=== PATIENT | male | born 1950 | race Caucasian/White ===

== ENCOUNTER 2016-12-23 10:31 | Emergency (ER) | payer MEDICARE ==
[2016-12-23 10:56] VITALS: BP 128/79; TEMP 96.1; O2SAT 96
--- NOTE | 2016-12-23 11:03 | ED.PDOC ---
History of Present Illness - General Chief Complaint: Respiratory Problem Stated Complaint: cough and fever Time Seen by Provider: 12/23/16 10:37 Source: patient, RN notes reviewed, Vital Signs reviewed, family Exam Limitations: no limitations - History of Present Illness Comments: Patient with 3 days of subjective fever, cough, chills, BRANHAM, body aches and vomiting X3. Timing/Duration: constant, other - 3 days Cough Quality/Degree: moderate, productive cough Possible Cause: no prior episodes, illness exposure Improving Factors: nothing Worsening Factors: nothing Associated Symptoms: cough, fever/chills, headache, muscle aches Allergies/Adverse Reactions: Allergies NO KNOWN ALLERGY Allergy (Verified 12/23/16 10:58) Home Medications: Ambulatory Orders Amlodipine Besylate 10 mg PO DAILY 12/23/16 Ascorbic Acid [Vitamin C] 250 mg PO DAILY 12/23/16 Atorvastatin Calcium [Lipitor] 10 mg PO DAILY 12/23/16 Clopidogrel Bisulfate 75 mg PO DAILY 12/23/16 Cyclobenzaprine HCl 10 mg PO TID PRN 12/23/16 Ferrous Sulfate 324 mg PO DAILY 12/23/16 Gabapentin 400 mg PO TID 12/23/16 Hydroxyzine HCl 25 mg PO QID 12/23/16 Oseltamivir Phosphate [Tamiflu] 75 mg PO BID #10 cap 12/23/16 Oxycodone HCl 5 - 10 mg PO TID 12/23/16 Potassium Chloride [Klor-Con/25] 25 - 50 meq PO BID 12/23/16 Ranitidine HCl 150 mg PO DAILY 12/23/16 Tamsulosin [Flomax] 0.4 mg PO DAILY 12/23/16 Review of Systems - Review of Systems Constitutional: States: chills, diaphoresis, fever, malaise, weakness EENTM: States: no symptoms reported, nose congestion. Denies: ear pain, throat pain Respiratory: States: cough. Denies: short of breath, stridor, wheezing Cardiology: States: no symptoms reported. Denies: chest pain, palpitations, syncope Gastrointestinal/Abdominal: States: nausea, vomiting. Denies: abdominal pain, constipation, diarrhea Genitourinary: States: no symptoms reported Musculoskeletal: States: muscle pain Skin: States: no symptoms reported Neurological: States: headache Endocrine: States: no symptoms reported Past Medical History (General) - Patient Medical History Hx Hypertension: Yes Hx Gastroesophageal Reflux: Yes - Vaccination History Hx Tetanus, Diphtheria Vaccination: Yes Hx Influenza Vaccination: No Hx Pneumococcal Vaccination: Yes - Social History Hx Tobacco Use: Yes Cigarettes Packs Per Day: 1 Hx Alcohol Use: No Hx Substance Use: No Hx Substance Use Treatment: No Hx Depression: No - Activities of Daily Living Hospice Agency (if applicable):: None - Female History Patient is a Female of Child Bearing Age (10 -59 yrs old): No Patient : No Family Medical History - Family History Mother Family History: Unknown Physical Exam - Physical Exam General Appearance: Alert, Comfortable, No apparent distress, Ill Appearing, Well Developed, Well Hydrated, Well Nourished Neck: non-tender, full range of motion, supple, lymphadenopathy (R), lymphadenopathy (L) Respiratory: chest non-tender, lungs clear, normal breath sounds, no respiratory distress, no accessory muscle use Cardiovascular/Chest: normal peripheral pulses, regular rate, rhythm, no edema, no gallop, no JVD, no murmur Gastrointestinal/Abdominal: normal bowel sounds, non tender, soft, no organomegaly, no pulsatile mass Extremity: normal range of motion, non-tender, normal inspection, no pedal edema Neurologic: no motor/sensory deficits, alert, normal mood/affect, oriented x 3 Skin Exam: normal color, warm/dry Progress - Results/Orders Results/Orders: Influenza A + Departure - Departure Clinical Impression: Influenza Time of Disposition: 11:35 Disposition: Discharge to Home or Self Care Condition: Good Departure Forms: ED Discharge - Pt. Copy, Patient Portal Self Enrollment Instructions: Influenza Diet: resume usual diet Activity: increase activity as tolerated Prescriptions: Oseltamivir Phosphate [Tamiflu] 75 mg PO BID #10 cap Home Medications: Ambulatory Orders Amlodipine Besylate 10 mg PO DAILY 12/23/16 Ascorbic Acid [Vitamin C] 250 mg PO DAILY 12/23/16 Atorvastatin Calcium [Lipitor] 10 mg PO DAILY 12/23/16 Clopidogrel Bisulfate 75 mg PO DAILY 12/23/16 Cyclobenzaprine HCl 10 mg PO TID PRN 12/23/16 Ferrous Sulfate 324 mg PO DAILY 12/23/16 Gabapentin 400 mg PO TID 12/23/16 Hydroxyzine HCl 25 mg PO QID 12/23/16 Oseltamivir Phosphate [Tamiflu] 75 mg PO BID #10 cap 12/23/16 Oxycodone HCl 5 - 10 mg PO TID 12/23/16 Potassium Chloride [Klor-Con/25] 25 - 50 meq PO BID 12/23/16 Ranitidine HCl 150 mg PO DAILY 12/23/16 Tamsulosin [Flomax] 0.4 mg PO DAILY 12/23/16
[2016-12-23] MEDS ORDERED: OSELTAMIVIR 75 MG CAP PO ONE (11:35)
== END 2016-12-23 12:20 | disposition home or self-care (01) ==
LOC: ER 10:31
DX: J11.1 Influenza due to unidentified influenza virus with other respiratory manifestations (principal); I10 Essential (primary) hypertension; K21.9 Gastro-esophageal reflux disease without esophagitis; F17.210 Nicotine dependence, cigarettes, uncomplicated; Z79.899 Other long term (current) drug therapy

== ENCOUNTER 2017-05-06 10:01 | Emergency (ER) | payer MEDICARE, OTHER ==
[2017-05-06] MEDS ORDERED: KETOROLAC TROMETHAMINE INJ 30 MG/ML VIAL IM ONE (10:13)
[2017-05-06] MEDS ORDERED: HYDROcodone 7.5MG/APAP 325MG 1 EA TAB PO ONE (10:13)
[2017-05-06] MEDS ORDERED: predniSONE 20 MG TAB PO ONE (10:13)
--- NOTE | 2017-05-06 12:01 | RAD ---
EXAM DESCRIPTION: Chest,2 Views CLINICAL HISTORY: 66 years, Male, chest pain after blunt trauma 3d ago COMPARISON: None. FINDINGS: Hyperinflation. There is a 1 cm nodular density of the posterior lateral right 9th rib, chronic in appearance. This is probably nipple shadow. If further characterization is desired a follow-up films can be obtained with nipple markers. Small opacity at the left base probably chronic change. On the lateral film, there is an oblong densities slightly more than 1 cm anterior to the aorta slightly below the arch. This is not clearly seen on the frontal projection. Consider follow-up films in 4-6 weeks to evaluate for stability. Cardiac silhouette normal. IMPRESSION: Chronic appearing lung changes. Nodule density overlying right lower chest is probably nipple shadow. On lateral view, oblong density slightly anterior ascending aorta is present. Consider follow-up films to evaluate for stability. Lungs otherwise clear. Cardiac silhouette normal The lateral view Electronically signed by: Rome Palomino MD 05/06/2017 11:59 AM CDT
[2017-05-06] MEDS ORDERED: cloNIDine HCL 0.1 MG TAB PO ONE (12:26)
[2017-05-06 13:00] VITALS: O2SAT 98
--- NOTE | 2017-05-06 13:01 | CT ---
EXAM DESCRIPTION: Chest w/Contrast CLINICAL HISTORY: 66 years, Male, chest pain s/p trauma with abn chest xray COMPARISON: Chest x-ray May 06, 2017 TECHNIQUE: Thin-section axial CT images are obtained during rapid bolus administration of nonionic IV contrast media. Reconstructed MPR images are created and reviewed as well. This exam was performed according to our departmental dose-optimization program, which includes automated exposure control, adjustment of the mA and/or kV according to patient size and/or use of iterative reconstruction technique. FINDINGS: Both lungs are well expanded without significant emphysematous change with minimal dependent atelectasis or scarring in each posterior costophrenic angle. No pneumothorax or hemopneumothorax is seen. A distinct pulmonary nodule or mass is not apparent. Specifically no abnormality in the lower right chest anteriorly is noted and the small nodular density likely represented a nipple shadow on the chest x-ray. A specific abnormality or mass in the opposite left chest is not apparent. Within the anterior mediastinum abutting the descending aorta is a macrolobulated soft tissue density mass measuring 2.6 x 1.6 x 2.9 cm. Differential diagnosis of an anterior mediastinal mass includes thymoma, lymphoma, and teratoma. This represents the nodular density identified anteriorly on the lateral view of the chest. Other etiologies such as a hematoma are considered unlikely and no specific abnormality of the descending aorta to suggest a primary aortic abnormality is evident. Most helpful would be old examinations either CT of the chest or chest x-rays to confirm long-term stability which would allow continued monitoring of this nodular density. No additional adenopathy within the remainder of the mediastinum or hilum or axillary regions or upper aspect of the abdomen is identified. Within the endobronchial structures a small amount of mucus or debris along the posterior lateral right side is present in a pattern that does not suggest a distinct mass or nodule. Bronchitis or an acute respiratory illness with secretions within the trachea are suspected. No atelectasis or consolidation or other endobronchial abnormalities are noted. Thoracic spine and chest wall are unremarkable. No acute parenchymal inflammation is noted. The upper aspect of the abdomen is unremarkable with a diminutive appearing spleen and visualized normal appearance of the upper portion of the liver and kidneys and pancreas IMPRESSION: 1. 2.9 x 2.6 x 1.6 cm lobulated soft tissue density anterior mediastinal mass abutting the anterior surface of the aorta. Thymoma, teratoma, or the possibility of enlarged lymph nodes or lymphoma would be considered the most likely etiologies. A substernal thyroid because of its more inferior location is thought less likely with a normal appearance of the thyroid at the base of the neck noted. Most helpful would be old chest x-rays to confirm the nodular density seen radiographically is stable or prior chest CTs at other institutions to confirm stability. Alternatively a PET/CT examination to assess for hypermetabolic activity in the possibility of lymphoma or thymoma should be considered. At the very least an early follow-up with repeat imaging in 2-3 months is recommended if prior imaging to confirm stability cannot be obtained 2. Essentially clear lung jarvis with no evidence of pulmonary nodule noted on the right. The radiographic density almost certainly security representative the right nipple shadow. Mild basilar scarring or dependent atelectasis in the posterior lung bases noted bilaterally 3. Small amount of secretions or debris in the right posterior aspect of the distal trachea just above the jonathan. Correlation with any history of bronchitis or upper respiratory illness or productive cough is recommended. The appearance does not suggest an endobronchial or endotracheal mass. If follow-up imaging is performed in several months this can be reassessed as well. Electronically signed by: Brandan Frazier MD 05/06/2017 1:00 PM CDT
--- NOTE | 2017-05-06 13:09 | ED.PDOC ---
History of Present Illness - General Chief Complaint: Chest Pain/SC Stated Complaint: Chest pain, SOB Time Seen by Provider: 05/06/17 10:12 Source: patient Exam Limitations: no limitations - History of Present Illness Initial Comments: the patient is a 66-year-old male presenting to the emergency room secondary to anterior chest pain present for the last 3 days and progressive since he was wrestling with a relative and took an elbow to the sternum. The patient does have some mild shortness of breath. He has severe pain with movement. He does have some obvious COPD. He has some pain with taking deep breaths. There is no crepitus. I see no external deformity. He is significantly tender to palpation over his anterior chest wall. The patient is then. No definite fevers at home. He appears to be oxygenating well. He is moderately hypertensive here today. No other injuries. Severity: moderate Improving Factors: immobilization Worsening Factors: movement Associated Symptoms: chest pain, shortness of breath Allergies/Adverse Reactions: Allergies Penicillins Allergy (Verified 05/06/17 10:13) Rash Home Medications: Ambulatory Orders Amlodipine Besylate 10 mg PO DAILY 12/23/16 Ascorbic Acid [Vitamin C] 250 mg PO DAILY 12/23/16 Atorvastatin Calcium [Lipitor] 10 mg PO DAILY 12/23/16 Clopidogrel Bisulfate 75 mg PO DAILY 12/23/16 Cyclobenzaprine HCl 10 mg PO TID PRN 12/23/16 Ferrous Sulfate 324 mg PO DAILY 12/23/16 Gabapentin 400 mg PO BID 12/23/16 Hydroxyzine HCl 25 mg PO QID 12/23/16 Oxycodone HCl 5 - 10 mg PO TID 12/23/16 Potassium Chloride [Klor-Con/25] 25 - 50 meq PO BID 12/23/16 Ranitidine HCl 150 mg PO DAILY 12/23/16 Tamsulosin [Flomax] 0.4 mg PO DAILY 12/23/16 Aidklopoownjr-Ahqa-Eypgxywcgy [Fioricet] 1 ea PO Q8H PRN #21 tab 05/06/17 levoFLOXacin [Levaquin] 500 mg PO DAILY #7 tab 05/06/17 predniSONE [Prednisone] 20 mg PO DAILY #3 tab 05/06/17 Review of Systems - Review of Systems Constitutional: States: malaise EENTM: States: no symptoms reported Respiratory: States: short of breath - mild Cardiology: States: chest pain Gastrointestinal/Abdominal: States: no symptoms reported Genitourinary: States: no symptoms reported Musculoskeletal: States: no symptoms reported Skin: States: no symptoms reported Neurological: States: no symptoms reported Endocrine: States: no symptoms reported All other Systems: No Change from Baseline Past Medical History (General) - Patient Medical History Hx Stroke: No Hx Cardiac Disorders: Yes - PVD Hx Hypertension: Yes Hx Diabetes: No Hx Gastroesophageal Reflux: Yes Hx MRSA: No - Vaccination History Hx Tetanus, Diphtheria Vaccination: Yes Hx Influenza Vaccination: Yes - 2016 Hx Pneumococcal Vaccination: Yes - 2016 - Social History Hx Tobacco Use: Yes Hx Alcohol Use: No Hx Substance Use: No Hx Substance Use Treatment: No Hx Depression: No - Female History Patient : No Family Medical History - Family History Mother Family History: Unknown Father Hx Family;Other: Emphysema Physical Exam - Physical Exam General Appearance: Alert, No apparent distress - ith the exception of obvious pain when he moves Eye Exam: bilateral normal Ears, Nose, Throat: hearing grossly normal, normal ENT inspection, normal pharynx Neck: non-tender, full range of motion, supple Respiratory: lungs clear, normal breath sounds, no respiratory distress, no accessory muscle use, respiratory distress, other - anterior chest wall is very tender to palpation Cardiovascular/Chest: normal peripheral pulses, regular rate, rhythm, no edema Peripheral Pulses: radial,right: 2+, radial,left: 2+, dorsalis pedis,right: 2+, dorsalis pedis,left: 2+ Gastrointestinal/Abdominal: non tender, soft Rectal Exam: deferred Back Exam: normal inspection, no CVA tenderness, no vertebral tenderness Extremity: normal range of motion, non-tender, normal inspection, no pedal edema , normal capillary refill Neurologic: ream cutter II-XII nml as tested, alert, normal mood/affect, oriented x 3 Skin Exam: normal color Comments: Vital Signs - 24 hr 05/06/17 05/06/17 05/06/17 10:04 11:00 12:40 Temperature 97.7 F Pulse Rate [ 74 68 64 Apical] Respiratory 24 24 20 Rate Blood Pressure 151/82 156/87 185/97 [Right Arm] O2 Sat by Pulse 99 99 98 Oximetry Progress - Progress Progress: 05/06/17 13:11 the patient is a 66-year-old male presenting to the emergency room secondary to anterior chest pain after trauma 3 days ago. The chest pain is most likely simply costochondritis from trauma. The patient will be placed on 3 days of oral prednisone and he will be given some Fioricet additionally for pain relief. He needs to take big deep breaths to prevent any pneumonia formation. He needs to try to twist and turn to relieve muscle spasm. Needs to keep well-hydrated. CT scan of the chest secondary to nodular abnormality seen on chest x-ray shows a 2.5 cm mass anterior to the aorta and the mediastinum with a differential including lymphoma, thymoma and teratoma. A repeat CT scan was recommended for 2 months for follow-up. No previous imaging is known on this patient of this area. The patient does have leukocytosis possibly representing a bronchitis seen on the CT scan. The patient will be placed on Levaquin for 7 days. He does need to have his white blood cell count rechecked. If it is remaining elevated after a week or 2 then further workup in correlation with the above differential may be warranted. Needs to follow- up with his primary care doctor in 1-2 weeks. ER warnings were given. no smoking. - Results/Orders Results/Orders: Laboratory Tests 05/06/17 05/06/17 05/06/17 10:20 10:20 10:20 WBC 17.2 H RBC 4.16 L Hgb 13.2 L Hct 39.7 L MCV 95.6 H MCH 31.7 H MCHC 33.3 RDW 14.8 H Plt Count 608 H MPV 6.4 L Absolute Neuts (auto) 9.60 H Absolute Lymphs (auto) 5.00 H Absolute Monos (auto) 1.60 H Absolute Eos (auto) 0.80 H Absolute Basos (auto) 0.20 H Neutrophils % 55.7 Lymphocytes % 28.9 Monocytes % 9.4 H Eosinophils % 4.7 Basophils % 1.3 PT 10.5 INR 0.930 PTT (SP) 35.1 Sodium 138 Potassium 3.9 Chloride 103 Carbon Dioxide 25 Anion Gap 13.9 BUN 26 H Creatinine 1.24 BUN/Creatinine Ratio 21.0 H Random Glucose 128 H Serum Osmolality 282.1 Calcium 9.4 Magnesium 2.1 Total Bilirubin 0.4 AST 16 ALT 13 Alkaline Phosphatase 87 Creatine Kinase 27 L CK-MB (CK-2) 1.5 CK-MB (CK-2) % Not Reportable Troponin I 0.02 B-Natriuretic Peptide 15.4 Serum Total Protein 7.7 Albumin 4.3 Globulin 3.4 Albumin/Globulin Ratio 1.3 chest x-ray shows fairly clear lung jarvis but there is a question of a nodule anterior to the aorta. CT scan of the chest with IV contrast shows a 2.5 cm mass anterior to the aorta in the mediastinum with a differential including lymphoma, thymoma and teratoma. Recommended repeat CT scan in 2 months EKG shows normal sinus rhythm with poor wave progression in anterior leads. No acute ST segment changes concerning for ischemia. Normal voltage. No alternans. Departure - Departure Clinical Impression: Costochondritis, acute, Mediastinal mass Bronchitis, acute Qualifiers: Bronchitis organism: unspecified organism Qualified Code(s): J20.9 - Acute bronchitis, unspecified Disposition: Discharge to Home or Self Care Condition: Fair Departure Forms: ED Discharge - Pt. Copy, Patient Portal Self Enrollment Instructions: DI for Costochondritis, DI for Acute Bronchitis Diet: regular diet Activity: increase activity as tolerated Prescriptions: Etkwadqoawynu-Grek-Optqvcntnf [Fioricet] 1 ea PO Q8H PRN #21 tab PRN Reason: Pain levoFLOXacin [Levaquin] 500 mg PO DAILY #7 tab predniSONE [Prednisone] 20 mg PO DAILY #3 tab Home Medications: Ambulatory Orders Amlodipine Besylate 10 mg PO DAILY 12/23/16 Ascorbic Acid [Vitamin C] 250 mg PO DAILY 12/23/16 Atorvastatin Calcium [Lipitor] 10 mg PO DAILY 12/23/16 Clopidogrel Bisulfate 75 mg PO DAILY 12/23/16 Cyclobenzaprine HCl 10 mg PO TID PRN 12/23/16 Ferrous Sulfate 324 mg PO DAILY 12/23/16 Gabapentin 400 mg PO BID 12/23/16 Hydroxyzine HCl 25 mg PO QID 12/23/16 Oxycodone HCl 5 - 10 mg PO TID 12/23/16 Potassium Chloride [Klor-Con/25] 25 - 50 meq PO BID 12/23/16 Ranitidine HCl 150 mg PO DAILY 12/23/16 Tamsulosin [Flomax] 0.4 mg PO DAILY 12/23/16 Ldezyffmmseol-Nels-Kevodalgid [Fioricet] 1 ea PO Q8H PRN #21 tab 05/06/17 levoFLOXacin [Levaquin] 500 mg PO DAILY #7 tab 05/06/17 predniSONE [Prednisone] 20 mg PO DAILY #3 tab 05/06/17 Additional Instructions: the patient is a 66-year-old male presenting to the emergency room secondary to anterior chest pain after trauma 3 days ago. The chest pain is most likely simply costochondritis from trauma. The patient will be placed on 3 days of oral prednisone and he will be given some Fioricet additionally for pain relief. He needs to take big deep breaths to prevent any pneumonia formation. He needs to try to twist and turn to relieve muscle spasm. Needs to keep well-hydrated. CT scan of the chest secondary to nodular abnormality seen on chest x-ray shows a 2.5 cm mass anterior to the aorta and the mediastinum with a differential including lymphoma, thymoma and teratoma. A repeat CT scan was recommended for 2 months for follow-up. No previous imaging is known on this patient of this area. The patient does have leukocytosis possibly representing a bronchitis seen on the CT scan. The patient will be placed on Levaquin for 7 days. He does need to have his white blood cell count rechecked. If it is remaining elevated after a week or 2 then further workup in correlation with the above differential may be warranted. Needs to follow- up with his primary care doctor in 1-2 weeks. ER warnings were given. no smoking. he does need to hold his cholesterol medication while on these additional other medicines
[2017-05-06] MEDS ORDERED: SODIUM CHLORIDE 0.9% 1000ML 1,000 ML IVS ONE (13:15)
[2017-05-06 13:56] VITALS: BP 184/87; TEMP 96.8
== END 2017-05-06 13:40 | disposition home or self-care (01) ==
LOC: ER 10:01
DX: M94.0 Chondrocostal junction syndrome [Tietze] (principal); J20.9 Acute bronchitis, unspecified; R22.2 Localized swelling, mass and lump, trunk; Z88.0 Allergy status to penicillin; I10 Essential (primary) hypertension; K21.9 Gastro-esophageal reflux disease without esophagitis; Z87.891 Personal history of nicotine dependence
CPT/HCPCS: 36415; 71020; 71260; 80053; 82550; 82553; 83735; 83880; 84484; 85025; 85610; 85730; 93005; J1885; J7512

== ENCOUNTER → 2017-08-01 | Outpatient (CLI) | payer MEDICARE, OTHER | END | disposition home or self-care (01) | LOC: LAB.O 11:37 | PROVIDERS: ATTEND Nurse Practitioner Family | DX: D64.9 Anemia, unspecified (principal) ==

== ENCOUNTER 2017-08-25 15:30 | Inpatient (IN) | payer OTHER ==
[2017-08-25] MEDS ORDERED: SODIUM CHLORIDE 0.9% (FLUSH) 10 ML SYG IV PRN (16:16)
[2017-08-25] MEDS ORDERED: diphenhydrAMINE HCL 50 MG/ML VIAL IV ONE (16:21)
[2017-08-25] MEDS ORDERED: ACETAMINOPHEN 325 MG TAB PO ONE (16:21)
[2017-08-25] MEDS ORDERED: CYCLOBENZAPRINE HCL 10 MG TAB PO PRN (16:23)
[2017-08-25] MEDS ORDERED: IV SET AND CAP CHANGE INJ INJ SCH (16:30)
[2017-08-25] MEDS ORDERED: SODIUM CHLORIDE 0.9% 500ML 500 ML IVS SCH (16:30)
[2017-08-25] MEDS: KCL 20MEQ/0.45% NS 1,000 ML IVS PRN (17:03)
[2017-08-25] MEDS: POTASSIUM CHLORIDE 20 MEQ TAB PO SCH (17:33)
--- NOTE | 2017-08-25 21:12 | HP ---
SUPERVISING PHYSICIAN: Hector Lopez M.D. CHIEF COMPLAINT: Severe anemia, symptomatic. HISTORY OF PRESENT ILLNESS: Mr. Blanc is a 66 year-old male patient that currently is under the care of hospice with [facility]. He was diagnosed with multiple myeloma. The patient was just diagnosed in April and was started on hospice within the last month. The patient had been showing a decrease in strength and weakness, and had lab work done today and showed that he had a hemoglobin of 4. I was contacted by hospice and requested to admit the patient for palliative transfusion and fluid management. The patient is hemodynamically stable and was placed to inpatient hospice and now will be transfused 2 units of packed red blood cells initially palliatively and once transfused and feeling better will be discharged. The patient was admitted in stable condition. PAST MEDICAL HISTORY: 1. Recent diagnosis of multiple myeloma in April through the [facility] opting to forego any aggressive treatment. 2. Leukemia not specified. 3. Bone cancer. 4. Osteoarthritis. 5. Chronic back pain affecting lower back secondary to ongoing bone cancer. 6. Gastroesophageal reflux disease. 7. Benign prostatic hypertrophy. 8. 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 PAST SURGICAL HISTORY: 1. Sinusectomy. 2. Thyroidectomy in 06/2017. 3. Right leg arterial stent placement. HOME MEDICATIONS: 1. Amlodipine 10 mg daily. 2. Tylenol 325 mg every 8 hours p.r.n. 3. Lipitor 10 mg daily. 4. Aspirin 81 mg. 5. Ascorbic acid 250 mg. 6. Plavix 75 mg daily. 7. Ferrous sulfate 325 mg daily. 8. Cyclobenzaprine 10 mg as needed t.i.d. 9. Gabapentin 400 mg daily. 10. Folic acid 1 mg daily. 11. Oxycodone 5 to 10 mg p.r.n. every 4 hours for pain. 12. Potassium chloride 40 mEq twice daily. 13. Paroxetine 30 mg daily. 14. Flomax 0.4 mg daily. 15. Ranitidine 150 mg b.i.d. 16. Tramadol 50 mg every 6 hours p.r.n. for pain. 17. Vitamin B12 injection 1,000 mcg weekly. ALLERGIES: PENICILLIN AND MORPHINE. CODE STATUS: DO NOT RESUSCITATE. UNDER THE CARE OF [facility]. FAMILY HISTORY: Noncontributory. SOCIAL HISTORY: The patient is retired, disabled. 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 He is and lives at [facility]. He does have a history of smoking approximately 1/2 pack a day. Only drinks alcohol very infrequently. Denies any illicit drug use. REVIEW OF SYSTEMS: CONSTITUTIONAL: Denies any fever or chills, but has had weight loss secondary to underlying multiple myeloma with associated poor appetite and ongoing general malaise. HEENT: No vision changes, headaches, nasal congestion, sore throat. RESPIRATORY: Does have dyspnea with exertion but no cough. HEART: No reported chest pains, palpitations, syncopal episodes. ABDOMEN: No changes in bowel habits. No nausea, vomiting, diarrhea or constipation. GENITOURINARY: No dysuria, hematuria or other urinary symptoms. NEUROLOGIC: No syncopal episode. No neurological deficits reported. No change in vision or hearing, just generalized weakness secondary to underlying multiple myeloma and severe anemia. PHYSICAL EXAMINATION: VITAL SIGNS: Temperature on admission was 97.8, pulse 98, blood pressure 137/74 , satting 100% on room air, respirations 14. Weight 59.5 kg. GENERAL: The patient is very thin, ill-appearing, tired, pale, but is alert and oriented and appears to be comfortable in no acute distress. HEENT: Tympanic membranes are clear bilaterally. Oropharynx was pale. Mucosal membranes were slightly dry with no lesions. NECK: Supple with full range of motion, non-tender. No jugular venous distention. CHEST: Lungs were clear to auscultation bilaterally without any rhonchi, wheezing or rales. CARDIOVASCULAR: Regular rate and rhythm without appreciable murmurs, gallops, or rubs. ABDOMEN: Soft, non-tender. Positive bowel sounds. EXTREMITIES: No clubbing, cyanosis or edema. NEUROLOGIC: He was alert and oriented times three. LABORATORY: Hemoglobin prior to admission reported through hospice was 4. No other laboratory studies were available at time of admission. RADIOLOGY: No radiographic studies were obtained. ASSESSMENT: 1. Severe anemia, symptomatic with hemoglobin of 4 secondary to underlying multiple myeloma. 2. History of multiple myeloma recently diagnosed in April of 2017. 3. Leukemia. 4. Bone cancer. 5. Osteoarthritis. 6. Chronic back pain secondary to bone cancer and multiple myeloma on chronic pain management. 7. Benign prostatic hypertrophy. 8. Gastroesophageal reflux disease. 9. History of right leg arterial blockage with stent placement. 10. Moderate dehydration with poor oral intake. PLAN: The patient will be directly admitted to hospice inpatient care for palliative transfusion of packed red blood cells. Will resume his home medications as per hospice orders. He has been ordered 2 units tonight and will transfuse those and reassess him in the morning, and based off how he feels either let him go home or transfuse an additional unit. Again, the transfusion is for palliative reasons only. Will anticipate discharging once transfusion is completed to continue under the care of hospice, [facility]. Once discharged, again he will need close clinical followup both with his primary care provider who is Glenn Pearce and the care of hospice through [facility]. Until then, will continue to monitor and treat appropriately. #[id number] [facility]
[2017-08-25] MEDS: traMADol HCL 50 MG TAB PO PRN (23:39)
[2017-08-26] MEDS: traMADol HCL 50 MG TAB PO PRN (05:53)
[2017-08-26] MEDS ORDERED: FERROUS SULFATE 325 MG TAB ONE (07:51)
[2017-08-26] MEDS ORDERED: ASPIRIN (CHEWABLE) 81 MG TAB ONE (07:52)
[2017-08-26] MEDS ORDERED: FOLIC ACID 1 MG TAB ONE (07:52)
[2017-08-26] MEDS ORDERED: TAMSULOSIN 0.4 MG CAP ONE (07:52)
[2017-08-26] MEDS ORDERED: GABAPENTIN 400 MG CAP ONE (07:52)
[2017-08-26] MEDS ORDERED: CLOPIDOGREL 75 MG TAB ONE (07:53)
[2017-08-26] MEDS ORDERED: ASCORBIC ACID 500 MG TAB ONE (07:54)
[2017-08-26] MEDS ORDERED: amLODIPine BESYLATE 5 MG TAB ONE (07:54)
[2017-08-26] MEDS ORDERED: PARoxetine HCL 20 MG TAB PO ONE (07:54)
[2017-08-26] MEDS: POTASSIUM CHLORIDE 20 MEQ TAB PO SCH (07:55)
[2017-08-26] MEDS: KCL 20MEQ/0.45% NS 1,000 ML IVS PRN (07:56)
[2017-08-26 08:59] VITALS: BP 147/80; TEMP 99.7; O2SAT 99
[2017-08-26] MEDS ORDERED: CLOPIDOGREL 75 MG TAB PO SCH (09:00)
[2017-08-26] MEDS ORDERED: PARoxetine HCL 20 MG TAB PO SCH (09:00)
[2017-08-26] MEDS ORDERED: amLODIPine BESYLATE 5 MG TAB PO SCH (09:00)
[2017-08-26] MEDS ORDERED: ASPIRIN (CHEWABLE) 81 MG TAB PO SCH (09:00)
[2017-08-26] MEDS ORDERED: ATORVASTATIN 10 MG TAB PO SCH (09:00)
[2017-08-26] MEDS ORDERED: FERROUS SULFATE 325 MG TAB PO SCH (09:00)
[2017-08-26] MEDS ORDERED: TAMSULOSIN 0.4 MG CAP PO SCH (09:00)
[2017-08-26] MEDS ORDERED: FOLIC ACID 1 MG TAB PO SCH (09:00)
[2017-08-26] MEDS ORDERED: GABAPENTIN 400 MG CAP PO SCH (09:00)
[2017-08-26] MEDS ORDERED: ASCORBIC ACID 500 MG TAB PO SCH (09:00)
--- NOTE | 2017-08-26 11:02 | DS ---
SUPERVISING PHYSICIAN: Hector Lopez MD DISCHARGE DIAGNOSIS: 1. Severe anemia, symptomatic with hemoglobin of 4, secondary to underlying multiple myeloma, given 2 units of packed red blood cells. 2. History of multiple myeloma recently diagnosed in April of 2017. 3. Leukemia. 4. Bone cancer. 5. Osteoarthritis. 6. Chronic back pain secondary to bone cancer and multiple myeloma on chronic pain management as well as [facility]. 7. Benign prostatic hypertrophy. 8. Gastroesophageal reflux disease. 9. History of right leg arterial blockage with stent placement. 10. Moderate dehydration with poor oral intake, now mostly resolved. HISTORY OF PRESENT ILLNESS: This is a 66 year-old male patient who currently is under the care of hospice with [facility]. He was diagnosed with multiple myeloma in April of 2013. The patient had shown a decrease in strength and weakness. Lab wok done on the day of admission showed that he had a hemoglobin of 4. The patient was placed in the hospital and given palliative transfusion and as well as fluids. HOSPITAL COURSE: The patient was admitted inpatient hospice and was transfused 2 units of packed red blood cells initially. Initially, he was still a full code and after lengthy discussion with the family, the patient was made a DNR. His symptoms have resolved. I discussed his case with the hospice nurse as well as with Dr. Lopez and it is felt that the patient can go home and continue [facility] care. DISCHARGE PLAN: The patient will be discharged home with his hospice medications. He will continue with [facility] care. He is to increase his activity as tolerated as well as resume his previous diet. He is to followup with hospice care, or come to the Emergency Room for any further problems or complications. DISCHARGE MEDICATIONS: 1. Oxycodone. 2. Gabapentin. 3. Cyclobenzaprine. 4. Ranitidine. 5. Plavix. 6. Amlodipine. 7. Ferrous sulfate. 8. Vitamin C. 9. Flomax. 10. Lipitor. 11. Aspirin. 12. Folic acid. 13. Cyanocobalamin. 14. Acetaminophen. 15. Paxil. 16. Potassium chloride. 17. Tramadol. Dr. Lopez is the collaborating physician and available for consultation. #[id number] [facility]
== END 2017-08-26 10:36 | disposition hospice, home (50) | DRG 842 ==
LOC: MS 15:30
PROVIDERS: ADMIT Nurse Practitioner Family; ATTEND Nurse Practitioner Acute Care
PROC: 30233N1 Transfusion of Nonautologous Red Blood Cells into Peripheral Vein, Percutaneous Approach (ICD-10-PCS; principal; 2017-08-25)
DX: C90.00 Multiple myeloma not having achieved remission (principal); D64.9 Anemia, unspecified; C95.90 Leukemia, unspecified not having achieved remission; M19.90 Unspecified osteoarthritis, unspecified site; G89.3 Neoplasm related pain (acute) (chronic); N40.0 Benign prostatic hyperplasia without lower urinary tract symptoms; K21.9 Gastro-esophageal reflux disease without esophagitis; E86.0 Dehydration; Z51.5 Encounter for palliative care; Z66 Do not resuscitate; Z79.82 Long term (current) use of aspirin; Z95.820 Peripheral vascular angioplasty status with implants and grafts; Z79.02 Long term (current) use of antithrombotics/antiplatelets; Z87.891 Personal history of nicotine dependence; Z88.0 Allergy status to penicillin; Z88.5 Allergy status to narcotic agent; Z79.899 Other long term (current) drug therapy

== ENCOUNTER → 2017-08-25 | Outpatient (CLI) | payer MEDICARE, OTHER | END | disposition home or self-care (01) | LOC: BFHH 11:11 | PROVIDERS: ATTEND Family Medicine | DX: D64.9 Anemia, unspecified (principal) ==